=== PATIENT | male | born 1990 | race Caucasian/White ===

== ENCOUNTER 2017-07-01 06:39 | Emergency (ER) | payer SELFPAY ==
[~2017-07-01] VITALS: Wt 90.0 kg
[2017-07-01] MEDS ORDERED: NAPR-260 PO (07:53)
[2017-07-01] MEDS ORDERED: AMOX1TAB10 PO (07:54)
--- NOTE | 2017-07-01 08:03 | ERD ---
ER Documentation Chief Complaint Date/Time DATE: 07/01/17 TIME: 08:01 Chief Complaint R SIDE FACIAL SWELLING FOR THE PAST FEW DAYS. NO FEVERS. NO DISTRESS. HPI Patient is a 26-year-old male who presents to the emergency department for concerns of right sided upper tooth pain and right-sided facial pain and swelling. Patient states symptoms started approximately 3 days ago. Patient states the pain is been getting worse. Patient states upon waking up this morning he noted increased swelling to his right cheek. Patient denies any active bleeding or discharge. Patient states he was told approximately 6 months ago that he needed to have dental work done to his right upper teeth however he did not follow-up with the dentist. Patient denies any fevers, chills, nausea, vomiting, chest pain, shortness of breath or loss of consciousness. Patient is able to open and close his mouth without any difficulty. Patient is speaking in full sentences. ROS All systems reviewed and are negative except as per history of present illness. Medications Home Meds Active Scripts Amoxicillin/Potassium Clav (Amox-Clav 875-125 mg Tablet) 875-125 mg Tab, 1 TAB PO BID for 10 Days, #14 TAB Prov:HERLINDA BOUDREAUX PA-C 07/01/17 Naproxen* (Naprosyn*) 500 Mg Tablet, 500 MG PO BID Y for PAIN AND/OR INFLAMMATION, #20 TAB Prov:HERLINDA BOUDREAUX PA-C 07/01/17 PMhx/Soc History of Surgery: No Anesthesia Reaction: No Hx Neurological Disorder: No Hx Respiratory Disorders: No Hx Cardiac Disorders: No Hx Psychiatric Problems: No Hx Miscellaneous Medical Probl: No Hx Alcohol Use: Yes (Socially) Hx Substance Use: No Hx Tobacco Use: No Smoking Status: Never smoker FmHx Family History: No diabetes Physical Exam Vitals Vital Signs Date Time Temp Pulse Resp B/P Pulse Ox O2 Delivery O2 Flow Rate FiO2 07/01/17 06:44 98.8 92 20 145/98 98 Physical Exam GENERAL: Well-developed, well-nourished male. Appears in no acute distress. Speaking in full sentences HEAD: Normocephalic, atraumatic. No deformities or ecchymosis. EYE: Pupils equal, round, and reactive to light. EOMs intact. No conjunctival erythema. No eye discharge. Swelling noted of the patient's right lower eyelid. No proptosis. No warmth or active discharge. No fluctuance. ENT: External ear without any masses or tenderness. Auditory canals clear bilaterally. TM visualized bilaterally, non-erythematous, non-bulging. Nasal mucosa pink with no discharge. Oropharynx is pink without any tonsillar erythema or exudates. No uvula deviation. No kissing tonsils. Tender to palpation of the right upper molar gumline. Gumline appears erythematous and swollen. NECK: Supple. No meningismus. Normal ROM of the neck. LUNG: Clear to auscultation bilaterally. No rhonchi, wheezing, rales or coarse breath sounds. HEART: Regular rate and rhythm. No murmurs, rubs or gallops. BACK: No midline tenderness. EXTREMITIES: Equal pulses bilaterally. No peripheral clubbing, cyanosis or edema. No unilateral leg swelling. NEUROLOGIC: Alert and oriented to person, place and time. Moving all four extremities. 5/5 strength in all extremities. Normal speech. Steady gait. SKIN: Normal color. Warm and dry. No rashes or lesions. Procedures/MDM MEDICAL DECISION MAKING: This is a 26-year-old male who presents with right upper tooth pain and right facial swelling 3 days. Vital signs were reviewed. Patient is afebrile. Patient is not hypoxic. The patient did not have trismus, muffled voice, uvula deviation, unilateral tonsillar swelling, or drooling. No signs of neck swelling or hyperextension of the neck noted. Given these findings, the patient' s presentation is most consistent with right facial swelling and dental infection. I have a much lower clinical concern for osteomyelitis, epiglottitis , strep pharyngitis, peritonsillar abscess, retropharyngeal abscess or Ludwigs angina. PRESCRIPTIONS: Augmentin, naproxen DISCHARGE: She is stable for outpatient management. Patient will be discharged home with a course of antibiotics as well as pain medication. Patient advised to complete full course of antibiotics. Patient was advised on the importance of following up with a dentist. Patient was advised on the risks of noncompliance including but not limited to osteomyelitis and deep space infection. I have instructed the patient to see a dentist today or tomorrow. Referral information provided for [facility] walk-in clinic. I have instructed the patient to promptly return to the ER for any new or worsening symptoms including increased pain, fever, neck swelling/stiffness, drooling, rash or difficulty breathing. The patient and/or family expressed understanding of and agreement with this plan. All questions were answered. Home care instructions were provided. Patients blood pressure was elevated (>120/80) but appears stable without evidence of hypertensive emergency, hypertensive urgency or end-organ failure. I had discussion with the patient about the risks of hypertension. I have advised the patient to follow up with his/her primary care physician for outpatient monitoring and treatment for hypertension in 2-3 days. I have instructed the patient to return to the ER for any new or worsening symptoms including chest pain, shortness of breath, headache, blurred vision, confusion, nausea, vomiting or LOC. Departure Diagnosis: Primary Impression: Pain, dental Additional Impression: Facial swelling Condition: Stable Patient Instructions: Dental Pain Referrals: ON LICENSE OF [facility] YOU HAVE RECEIVED A MEDICAL SCREENING EXAM AND THE RESULTS INDICATE THAT YOU DO NOT HAVE A CONDITION THAT REQUIRES URGENT TREATMENT IN THE EMERGENCY DEPARTMENT. FURTHER EVALUATION AND TREATMENT OF YOUR CONDITION CAN WAIT UNTIL YOU ARE SEEN IN YOUR DOCTORS OFFICE WITHIN THE NEXT 1-2 DAYS. IT IS YOUR RESPONSIBILITY TO MAKE AN APPOINTMENT FOR FOL-UP CARE. IF YOU HAVE A PRIMARY DOCTOR --you should call your primary doctor and schedule an appointment IF YOU DO NOT HAVE A PRIMARY DOCTOR YOU CAN CALL OUR PHYSICIAN REFERRAL HOTLINE AT IF YOU CAN NOT AFFORD TO SEE A PHYSICIAN YOU CAN CHOSE FROM THE FOLLOWING [facility] [address] [facility]. [facility] [address] [facility] [facility] [address] [facility] [address] [facility] [address] [facility]. [facility]. [address] [facility]. [facility] YOU HAVE RECEIVED A MEDICAL SCREENING EXAM AND THE RESULTS INDICATE THAT YOU DO NOT HAVE A CONDITION THAT REQUIRES URGENT TREATMENT IN THE EMERGENCY DEPARTMENT. FURTHER EVALUATION AND TREATMENT OF YOUR CONDITION CAN WAIT UNTIL YOU ARE SEEN IN YOUR DOCTORS OFFICE WITHIN THE NEXT 1-2 DAYS. IT IS YOUR RESPONSIBILITY TO MAKE AN APPOINTMENT FOR FOLOW-UP CARE. IF YOU HAVE A PRIMARY DOCTOR --you should call your primary doctor and schedule and appointment IF YOU DO NOT HAVE A PRIMARY DOCTOR YOU CAN CALL OUR PHYSICIAN REFERRAL HOTLINE AT . IF YOU CAN NOT AFFORD TO SEE A PHYSICIAN YOU CAN CHOSE FROM THE FOLLOWING [facility] IN[facility]UTIONS: [facility] [address] [place] [address] [facility] [address] [place] [address] [facility] [address] [place] [address] [facility] ([facility] walk in clinic) Additional Instructions: Call your primary care doctor/DENTIST TOMORROW for an appointment during the next 1-2 days.See the doctor sooner or return here if your condition worsens before your appointment time. HERLINDA BOUDREAUX PA-C Jul 01, 2017 08:03
== END 2017-07-01 08:02 | disposition home or self-care (01) ==
LOC: FTE 06:39
DX: K08.89 Other specified disorders of teeth and supporting structures (principal)
CPT/HCPCS: 99283